=== PATIENT | female | born 1965 | race Caucasian/White ===

== ENCOUNTER 2017-04-17 10:21 | Emergency (ER) | payer BC ==
[~2017-04-17] VITALS: Ht 157.4 cm; Wt 127.0 kg
[~2017-04-17 10:21] MED LIST: AMOXICILLIN500 M2 PO; AMOXICILLIN500 MG PO; ANTIVERT25 MG PO; CLINDAMYCIN HC300 MG PO; CYCLOBENZAPRINE10 MG PO; IBU-8800 MG PO; LEVAQUIN750 MG PO; NORCO 10-325 T1 EACH PO; NORCO 5-325 TA1 EACH PO; OMEPRAZOLE20 M2 PO; PHENERGAN W/DM120 ML PO; PREDNICOT10 MG PO; PRINIVIL10 MG PO; PROAIR HFA0.09 MG/AC INH; VICODIN 5/500 505 MG PO; VICODIN ES 7501 TAB PO
[2017-04-17 11:33] VITALS: BP 156/91
[2017-04-17] MEDS ORDERED: PREDNISONE50 MG PO (11:42)
== END 2017-04-17 11:57 | disposition home or self-care (01) ==
LOC: ED 10:21
DX: T78.40XA Allergy, unspecified, initial encounter (principal)

== ENCOUNTER 2017-08-08 16:20 | Emergency (ER) | payer BC ==
[~2017-08-08] VITALS: Ht 157.4 cm; Wt 136.1 kg
[~2017-08-08 16:20] MED LIST changes: +PREDNISONE50 MG PO
[2017-08-08 16:43] VITALS: BP 143/72
== END 2017-08-08 17:41 | disposition home or self-care (01) ==
LOC: ED 16:20
DX: N63.20 Unspecified lump in the left breast, unspecified quadrant (principal)

== ENCOUNTER → 2017-08-09 | Outpatient (CLI) | payer BC | END | disposition home or self-care (01) | LOC: RESCLI 09:15 | DX: N63.20 Unspecified lump in the left breast, unspecified quadrant (principal); E66.01 Morbid (severe) obesity due to excess calories ==

== ENCOUNTER → 2017-08-10 | Outpatient (CLI) | payer BC | END | disposition home or self-care (01) | LOC: MAMMO 01:15 | DX: N63.20 Unspecified lump in the left breast, unspecified quadrant (principal) ==

== ENCOUNTER → 2017-08-17 | Outpatient (CLI) | payer BC | END | disposition home or self-care (01) | LOC: US 03:35 → SDC 11:00 → EDSTATUS 11:00 → US 11:00 | DX: C50.912 Malignant neoplasm of unspecified site of left female breast (principal) ==

== ENCOUNTER → 2017-08-22 | Outpatient (CLI) | payer BC | END | disposition home or self-care (01) | LOC: RESCLI 01:05 | DX: E66.01 Morbid (severe) obesity due to excess calories (principal); C50.912 Malignant neoplasm of unspecified site of left female breast ==

== ENCOUNTER 2017-09-03 09:00 | Inpatient (IN) | payer BC ==
[~2017-09-03] VITALS: Ht 157.4 cm; Wt 137.2 kg
[2017-09-03 09:07] VITALS: BP 151/93
--- NOTE | 2017-09-03 09:24 | NUR ---
FEELING MUCH BETTER AFTER AEROSOL [place]. JOSÉ MIGUEL LOONEY RN
[2017-09-03 09:30] LABS: BASO % 0.3 % (0.0-1.0); EOS # 0.3 10*3/uL (0.0-0.4); EOS % 2.7 % (1.0-4.0); HEMATOCRIT 32.9 % (37.0-47.0); HEMOGLOBIN 9.6 g/dl (12.0-16.0); LYMPH # 2.6 10*3/uL (1.3-4.4); MEAN CELL VOLUME 71.4 fl (81.0-99.0); MEAN CORPUSCULAR HGB 20.8 pg (27.0-31.0); MEAN CORPUSCULAR HGB CONC 29.2 g/dl (33.0-37.0); MEAN PLATELET VOLUME 9.9 fl (9.6-12.3); MONO # 0.7 10*3/uL (0.1-1.0); MONO % 7.7 % (3.0-9.0); NEUT # 5.7 10*3/uL (2.3-7.9); NEUT % 60.9 % (47.0-73.0); NUCLEATED RED BLOOD CELL 0.3 % (0.0-0.0); PLATELET COUNT AUTOMATED 366 10*3/uL (130-400); RED BLOOD COUNT 4.61 10*6/uL (4.10-5.10); RED CELL DISTRI WIDTH 17.3 % (0-14.5); WHITE BLOOD COUNT 9.3 10*3/uL (4.8-10.8)
[2017-09-03 09:41] LABS: ACT PARTIAL THROMBO TIME 24.7 SECONDS (20.8-31.5); INTERNATIONAL NORM RATIO 1.1 (2.0-3.5)
[2017-09-03 09:47] LABS: ALBUMIN 3.2 gm/dl (3.1-4.5); ALKALINE PHOSPHATASE 99 U/L (45-117); BUN 12 mg/dl (7-24); CHLORIDE 105 mmol/L (98-107); CREATININE 0.71 mg/dL (0.55-1.02); POTASSIUM 3.3 mmol/L (3.5-5.1); SGOT/AST 19 IU/L (3-35); SGPT/ALT 25 U/L (12-78); SODIUM 140 mmol/L (136-145); TOTAL PROTEIN 7.9 gm/dL (6.4-8.2)
[2017-09-03 09:48] LABS: TROPONIN I 0.015 ng/ml (<0.045)
[2017-09-03 09:56] VITALS: BP 142/95
[2017-09-03 09:57] LABS: RETICULOCYTE % 2.22 % (0.50-2.50)
[2017-09-03 10:05] LABS: IRON 20 ug/dL (50-170); TOTAL IRON BINDING CAPACITY 488 ug/dl (250-450)
--- NOTE | 2017-09-03 11:01 | NUR ---
[facility] 51, admitted to , under the services of ANNA Catherine DO with a diagnosis of SHORTNESS OF BREATH. Chief complaint is SHORTNESS OF BREATH. Patient arrived via bed from ER. Monitor applied. Initial assessment completed. Vital signs taken and recorded. ANNA CATHERINE DO notified of admission to the unit. Orders received. See assessment for past medical history, medications and allergies. Patient and/or family oriented to unit. [facility] visitation policy reviewed. Clothing/patient valuable form completed. CHRISSY MIRELES
[2017-09-03 12:00] VITALS: BP 145/84
--- NOTE | 2017-09-03 12:24 | NUR ---
SPOKE TO DR WALTER. PT BEING TRANSFERRED TO [facility] R/T BILAT PULMONARY EMBOLI AND VAGINAL BLEEDING.
--- NOTE | 2017-09-03 14:32 | NUR ---
CALLED REPORT TO DEVONTE AT [facility].
[2017-09-03 16:00] VITALS: BP 156/88
--- NOTE | 2017-09-03 16:07 | NUR ---
Discharge instructions reviewed with patient/family. Patient receptive and verbalizes understanding. Follow-up care arranged. Written instructions given to patient/family. JENNIFER LUNDBERG
== END 2017-09-03 16:07 | disposition short-term general hospital (02) | DRG 176 ==
LOC: ED 09:00 → EDHOLD 09:59 → 5E 10:15
PROVIDERS: Emergency Medicine; ADMIT Internal Medicine
DX: I26.99 Other pulmonary embolism without acute cor pulmonale (principal); E44.0 Moderate protein-calorie malnutrition; C50.912 Malignant neoplasm of unspecified site of left female breast; D50.0 Iron deficiency anemia secondary to blood loss (chronic); N93.9 Abnormal uterine and vaginal bleeding, unspecified; R06.00 Dyspnea, unspecified; E87.6 Hypokalemia; R73.9 Hyperglycemia, unspecified; E66.01 Morbid (severe) obesity due to excess calories; Z79.899 Other long term (current) drug therapy; Z82.49 Family history of ischemic heart disease and other diseases of the circulatory system; Z68.43 Body mass index [BMI] 50.0-59.9, adult; Z90.49 Acquired absence of other specified parts of digestive tract; Z83.3 Family history of diabetes mellitus

== ENCOUNTER → 2017-09-20 | Outpatient (CLI) | payer BC | END | disposition home or self-care (01) | LOC: RESCLI 03:36 | DX: K21.9 Gastro-esophageal reflux disease without esophagitis (principal); I26.99 Other pulmonary embolism without acute cor pulmonale; C50.912 Malignant neoplasm of unspecified site of left female breast; N93.9 Abnormal uterine and vaginal bleeding, unspecified; D50.0 Iron deficiency anemia secondary to blood loss (chronic); E66.01 Morbid (severe) obesity due to excess calories; Z90.49 Acquired absence of other specified parts of digestive tract ==

== ENCOUNTER → 2017-10-25 | Outpatient (CLI) | payer BC | END | disposition home or self-care (01) | LOC: RESCLI 00:38 | DX: I26.99 Other pulmonary embolism without acute cor pulmonale (principal); D50.0 Iron deficiency anemia secondary to blood loss (chronic); E66.01 Morbid (severe) obesity due to excess calories; K21.9 Gastro-esophageal reflux disease without esophagitis; C50.412 Malignant neoplasm of upper-outer quadrant of left female breast; Z17.0 Estrogen receptor positive status [ER+] ==

== ENCOUNTER → 2017-11-08 | Outpatient (CLI) | payer BC | END | disposition home or self-care (01) | LOC: RESCLI 12:06 | DX: C50.412 Malignant neoplasm of upper-outer quadrant of left female breast (principal); I26.99 Other pulmonary embolism without acute cor pulmonale; D50.0 Iron deficiency anemia secondary to blood loss (chronic); E66.01 Morbid (severe) obesity due to excess calories; K21.9 Gastro-esophageal reflux disease without esophagitis; S32.030A Wedge compression fracture of third lumbar vertebra, initial encounter for closed fracture; R42 Dizziness and giddiness; Z17.0 Estrogen receptor positive status [ER+] ==

== ENCOUNTER → 2018-01-16 | Outpatient (CLI) | payer BC | END | disposition home or self-care (01) | LOC: RESCLI 11:18 | DX: D50.0 Iron deficiency anemia secondary to blood loss (chronic) (principal); I26.99 Other pulmonary embolism without acute cor pulmonale; K21.9 Gastro-esophageal reflux disease without esophagitis; C50.412 Malignant neoplasm of upper-outer quadrant of left female breast; S32.030A Wedge compression fracture of third lumbar vertebra, initial encounter for closed fracture; R42 Dizziness and giddiness; E66.01 Morbid (severe) obesity due to excess calories; Z68.39 Body mass index [BMI] 39.0-39.9, adult; Z17.0 Estrogen receptor positive status [ER+] ==

== ENCOUNTER → 2018-02-06 | Outpatient (CLI) | payer BC | END | disposition home or self-care (01) | LOC: RESCLI 02-02 10:34 | DX: C50.412 Malignant neoplasm of upper-outer quadrant of left female breast (principal); I26.99 Other pulmonary embolism without acute cor pulmonale; D50.0 Iron deficiency anemia secondary to blood loss (chronic); E66.01 Morbid (severe) obesity due to excess calories; K21.9 Gastro-esophageal reflux disease without esophagitis; S32.030A Wedge compression fracture of third lumbar vertebra, initial encounter for closed fracture; R42 Dizziness and giddiness; Z17.0 Estrogen receptor positive status [ER+]; Z90.49 Acquired absence of other specified parts of digestive tract ==

== ENCOUNTER → 2018-04-05 | Outpatient (CLI) | payer BC | LOC: RESCLI 02:00 | DX: D50.0 Iron deficiency anemia secondary to blood loss (chronic) (principal); I26.99 Other pulmonary embolism without acute cor pulmonale; E66.01 Morbid (severe) obesity due to excess calories; K21.9 Gastro-esophageal reflux disease without esophagitis; C50.412 Malignant neoplasm of upper-outer quadrant of left female breast; R42 Dizziness and giddiness; S32.030A Wedge compression fracture of third lumbar vertebra, initial encounter for closed fracture; X58.XXXA Exposure to other specified factors, initial encounter; Y93.89 Activity, other specified; Y92.89 Other specified places as the place of occurrence of the external cause; Y99.8 Other external cause status; Z79.899 Other long term (current) drug therapy; Z17.0 Estrogen receptor positive status [ER+] ==

== ENCOUNTER → 2018-07-18 | Outpatient (CLI) | payer BC | END | disposition home or self-care (01) | LOC: RESCLI 01:14 | DX: S32.030A Wedge compression fracture of third lumbar vertebra, initial encounter for closed fracture (principal); I26.99 Other pulmonary embolism without acute cor pulmonale; D50.0 Iron deficiency anemia secondary to blood loss (chronic); E66.01 Morbid (severe) obesity due to excess calories; K21.9 Gastro-esophageal reflux disease without esophagitis; C50.412 Malignant neoplasm of upper-outer quadrant of left female breast; F17.200 Nicotine dependence, unspecified, uncomplicated; R42 Dizziness and giddiness; Z17.0 Estrogen receptor positive status [ER+]; Z79.899 Other long term (current) drug therapy; Z88.6 Allergy status to analgesic agent; X58.XXXA Exposure to other specified factors, initial encounter; Y93.89 Activity, other specified; Y92.89 Other specified places as the place of occurrence of the external cause; Y99.8 Other external cause status ==

== ENCOUNTER → 2018-08-03 | Outpatient (CLI) | payer BC | END | disposition home or self-care (01) | LOC: RESCLI 08:11 | DX: C50.412 Malignant neoplasm of upper-outer quadrant of left female breast (principal); I26.99 Other pulmonary embolism without acute cor pulmonale; D50.0 Iron deficiency anemia secondary to blood loss (chronic); E66.01 Morbid (severe) obesity due to excess calories; K21.9 Gastro-esophageal reflux disease without esophagitis; R42 Dizziness and giddiness; S32.030A Wedge compression fracture of third lumbar vertebra, initial encounter for closed fracture; Z17.0 Estrogen receptor positive status [ER+]; Z79.899 Other long term (current) drug therapy; X58.XXXA Exposure to other specified factors, initial encounter; Y93.89 Activity, other specified; Y92.89 Other specified places as the place of occurrence of the external cause; Y99.8 Other external cause status ==

== ENCOUNTER → 2018-11-23 | Outpatient (CLI) | payer BC | END | disposition home or self-care (01) | LOC: RESCLI 00:33 | DX: E66.01 Morbid (severe) obesity due to excess calories (principal); I26.99 Other pulmonary embolism without acute cor pulmonale; D50.0 Iron deficiency anemia secondary to blood loss (chronic); K21.9 Gastro-esophageal reflux disease without esophagitis; C50.412 Malignant neoplasm of upper-outer quadrant of left female breast; R42 Dizziness and giddiness; S32.030A Wedge compression fracture of third lumbar vertebra, initial encounter for closed fracture; Z17.0 Estrogen receptor positive status [ER+]; Z79.899 Other long term (current) drug therapy; Z90.49 Acquired absence of other specified parts of digestive tract; Z88.8 Allergy status to other drugs, medicaments and biological substances; X58.XXXA Exposure to other specified factors, initial encounter; Y93.89 Activity, other specified; Y92.89 Other specified places as the place of occurrence of the external cause; Y99.8 Other external cause status ==

== ENCOUNTER → 2018-12-28 | Outpatient (CLI) | payer OTHER | END | disposition home or self-care (01) | LOC: RESCLI 02:52 | DX: C50.412 Malignant neoplasm of upper-outer quadrant of left female breast (principal); I26.99 Other pulmonary embolism without acute cor pulmonale; D50.0 Iron deficiency anemia secondary to blood loss (chronic); E66.01 Morbid (severe) obesity due to excess calories; K21.9 Gastro-esophageal reflux disease without esophagitis; S32.030A Wedge compression fracture of third lumbar vertebra, initial encounter for closed fracture; R42 Dizziness and giddiness; Z17.0 Estrogen receptor positive status [ER+]; Z79.899 Other long term (current) drug therapy; Z90.710 Acquired absence of both cervix and uterus; Z88.8 Allergy status to other drugs, medicaments and biological substances; X58.XXXA Exposure to other specified factors, initial encounter; Y93.89 Activity, other specified; Y92.89 Other specified places as the place of occurrence of the external cause; Y99.8 Other external cause status ==

== ENCOUNTER → 2019-05-30 | Outpatient (CLI) | payer OTHER | END | disposition home or self-care (01) | LOC: RESCLI 03:41 | DX: L03.012 Cellulitis of left finger (principal); C50.412 Malignant neoplasm of upper-outer quadrant of left female breast; K21.9 Gastro-esophageal reflux disease without esophagitis; K59.00 Constipation, unspecified; M81.0 Age-related osteoporosis without current pathological fracture; G47.01 Insomnia due to medical condition; G62.9 Polyneuropathy, unspecified; Z86.711 Personal history of pulmonary embolism; Z79.899 Other long term (current) drug therapy ==

== ENCOUNTER → 2019-06-08 | Outpatient (CLI) | payer OTHER | END | disposition home or self-care (01) | LOC: RESCLI 13:30 | DX: E66.01 Morbid (severe) obesity due to excess calories (principal); N39.3 Stress incontinence (female) (male); K21.9 Gastro-esophageal reflux disease without esophagitis; C50.412 Malignant neoplasm of upper-outer quadrant of left female breast; G47.01 Insomnia due to medical condition; M81.0 Age-related osteoporosis without current pathological fracture; K59.01 Slow transit constipation; G62.9 Polyneuropathy, unspecified; B37.9 Candidiasis, unspecified; M19.041 Primary osteoarthritis, right hand; Z86.711 Personal history of pulmonary embolism; Z79.899 Other long term (current) drug therapy ==

== ENCOUNTER → 2019-07-05 | Outpatient (CLI) | payer OTHER | END | disposition home or self-care (01) | LOC: RESCLI 01:59 | DX: Z23 Encounter for immunization (principal); C50.412 Malignant neoplasm of upper-outer quadrant of left female breast; C79.51 Secondary malignant neoplasm of bone; M51.26 Other intervertebral disc displacement, lumbar region; G89.29 Other chronic pain; G62.9 Polyneuropathy, unspecified; R51 Headache; E66.01 Morbid (severe) obesity due to excess calories; Z90.49 Acquired absence of other specified parts of digestive tract; Z90.710 Acquired absence of both cervix and uterus; Z79.899 Other long term (current) drug therapy ==

== ENCOUNTER → 2019-08-02 | Outpatient (CLI) | payer OTHER | END | disposition home or self-care (01) | LOC: RESCLI 01:10 | DX: E66.01 Morbid (severe) obesity due to excess calories (principal); C50.412 Malignant neoplasm of upper-outer quadrant of left female breast; M51.26 Other intervertebral disc displacement, lumbar region; G89.29 Other chronic pain; G62.9 Polyneuropathy, unspecified; R51 Headache ==

== ENCOUNTER → 2019-11-28 | Outpatient (CLI) | payer OTHER | END | disposition home or self-care (01) | LOC: RESCLI 01:36 | DX: E66.01 Morbid (severe) obesity due to excess calories (principal); N39.3 Stress incontinence (female) (male); K21.9 Gastro-esophageal reflux disease without esophagitis; C50.412 Malignant neoplasm of upper-outer quadrant of left female breast; G47.01 Insomnia due to medical condition; M81.0 Age-related osteoporosis without current pathological fracture; K59.01 Slow transit constipation; G62.9 Polyneuropathy, unspecified; B37.9 Candidiasis, unspecified; M19.041 Primary osteoarthritis, right hand; M51.26 Other intervertebral disc displacement, lumbar region; G89.3 Neoplasm related pain (acute) (chronic); Z86.711 Personal history of pulmonary embolism; Z79.899 Other long term (current) drug therapy; Z90.710 Acquired absence of both cervix and uterus; Z90.49 Acquired absence of other specified parts of digestive tract; Z98.890 Other specified postprocedural states; Z98.51 Tubal ligation status ==

== ENCOUNTER → 2020-02-26 | Outpatient (CLI) | payer MEDICARE ==
[2020-02-26 14:00] LABS: BASO % 0.5 % (0.0-1.0); EOS # 0.2 10*3/uL (0.0-0.4); EOS % 3.8 % (1.0-4.0); HEMATOCRIT 40.5 % (37.0-47.0); LYMPH # 2.2 10*3/uL (1.3-4.4); LYMPH % 39.2 % (27.0-41.0); MEAN CELL VOLUME 97.6 fl (81.0-99.0); MEAN CORPUSCULAR HGB 31.3 pg (27.0-31.0); MEAN CORPUSCULAR HGB CONC 32.1 g/dl (33.0-37.0); MEAN PLATELET VOLUME 9.9 fl (9.6-12.3); MONO # 0.7 10*3/uL (0.1-1.0); MONO % 13.5 % (3.0-9.0); NEUT # 2.3 10*3/uL (2.3-7.9); NEUT % 42.1 % (47.0-73.0); PLATELET COUNT AUTOMATED 261 10*3/uL (130-400); RED BLOOD COUNT 4.15 10*6/uL (4.10-5.10); RED CELL DISTRI WIDTH 15.5 % (0-14.5); WHITE BLOOD COUNT 5.5 10*3/uL (4.8-10.8)
== END | disposition home or self-care (01) ==
LOC: RESCLI 00:33
PROVIDERS: Internal Medicine Nephrology
DX: C50.412 Malignant neoplasm of upper-outer quadrant of left female breast (principal); E61.1 Iron deficiency; Z90.49 Acquired absence of other specified parts of digestive tract; Z90.710 Acquired absence of both cervix and uterus; Z98.51 Tubal ligation status; Z98.890 Other specified postprocedural states; Z79.899 Other long term (current) drug therapy

== ENCOUNTER → 2020-06-05 | Outpatient (CLI) | payer MEDICARE, MEDICAID | END | disposition home or self-care (01) | LOC: RESCLI 14:06 | PROVIDERS: ATTEND Internal Medicine | DX: C50.412 Malignant neoplasm of upper-outer quadrant of left female breast (principal); G62.9 Polyneuropathy, unspecified; G89.3 Neoplasm related pain (acute) (chronic); E66.01 Morbid (severe) obesity due to excess calories; K21.9 Gastro-esophageal reflux disease without esophagitis; Z79.899 Other long term (current) drug therapy; Z90.49 Acquired absence of other specified parts of digestive tract; Z98.890 Other specified postprocedural states ==